=== PATIENT | female | born 1985 | race Two or more races ===

== ENCOUNTER 2023-03-30 18:34 | Emergency (ER) | payer MEDICAID ==
[~2023-03-30] VITALS: Ht 170.2 cm; Wt 82.8 kg
[~2023-03-30 18:34] MED LIST: NORPTMEDS CO
[2023-03-30 19:37] LABS: Basophils # (auto) 0 10 ^3/uL (0-0.2); Basophils % (auto) 0.5 % (0.0-2.0); Eosinophils # (auto) 0.1 10 ^3/uL (0-0.8); Eosinophils % (auto) 1.7 % (0.0-7.0); Hematocrit 39.3 % (36.0-46.0); Lymphocytes % (auto) 23.2 % (10.0-50.0); Mean Corpuscular Hemoglobin 30.5 pg (28.0-32.0); Mean Corpuscular Volume 92.3 fL (80.0-100.0); Monocytes # (auto) 0.5 10 ^3/uL (0-1.3); Neutrophils # (auto) 5.8 10 ^3/uL (1.6-8.6); Neutrophils % (auto) 68.6 % (37.0-80.0); Red Blood Cells 4.26 10^6/uL (4.0-5.20); Red Cell Distribution Width 12.8 % (11.8-14.3); White Blood Cell 8.5 10^3/uL (4.4-10.8)
[2023-03-30 20:02] LABS: Alanine Aminotransferase 19 U/L (7-40); Albumin 4.6 g/dL (3.2-4.8); Alkaline Phosphatase 48 U/L (46-116); Anion Gap 6 (5-15); Aspartate Aminotransferase 19 U/L (13-40); BUN/Creatinine Ratio 8.6 (10.0-20.0); Bilirubin, Total 0.3 mg/dL (0.2-1.0); Blood Urea Nitrogen 5 mg/dL (9-23); Calcium 9.6 mg/dL (8.5-10.1); Carbon Dioxide 22 mmol/L (20-30); Chloride 109 mmol/L (98-107); Glucose 94 mg/dL (74-106); Potassium 3.4 mmol/L (3.5-5.1); Sodium 137 mmol/L (136-145); Total Protein 6.8 g/dL (5.7-8.2)
[2023-03-30 23:21] LABS: Urine Bacteria NONE SEEN /hpf (None Seen); Urine Blood Negative /uL (Negative); Urine Clarity HAZY (Clear); Urine Color Yellow (Yellow); Urine Mucus MANY (None Seen); Urine Protein, UAD 1+ (Negative); Urine Specific Gravity 1.029 (1.001-1.035); Urine Urobilinogen Normal (Negative); Urine WBC 13 /hpf (0 - 5); Urine pH 5.5 (5.0-8.0)
[2023-03-30] MEDS ORDERED: METO-281 PO (23:51)
[2023-03-30] MEDS ORDERED: ACET-1304 PO (23:51)
[2023-03-30] MEDS ORDERED: NITR-87 PO (23:51)
[2023-03-31 01:37] VITALS: BP 106/57; TEMP 97.7
[2023-03-31 01:42] VITALS: PULSE 70; RESP 16; O2SAT 100
[2023-03-31] MEDS: METOCLOPRAMIDE HCL 10 MG TAB PO ONE (01:44)
[2023-03-31] MEDS: ACETAMINOPHEN 325 MG TAB PO ONE (01:44)
[2023-03-31] MEDS: NITROFURANTOIN 100 mg CAP PO ONE (01:44)
== END 2023-03-31 01:48 | disposition home or self-care (01) ==
LOC: ER 18:34
DX: O26.891 Other specified pregnancy related conditions, first trimester (principal); R10.2 Pelvic and perineal pain; R10.9 Unspecified abdominal pain; Z3A.12 12 weeks gestation of pregnancy
CPT/HCPCS: 36415; 76801; 76817; 80053; 81001; 84702; 85025; 86900; 86901; 99284; J8597